=== PATIENT | female | born 2000 | race Hispanic/Latino ===

== ENCOUNTER → 2024-12-25 | Outpatient (CLI) | payer BC ==
--- NOTE | 2024-12-25 15:39 | HMCIMG ---
Exam: Transabdominal pelvic ultrasound History: Irregular menses Technique: static grayscale and color doppler images are submitted. Findings: The uterus is sonographically normal in appearance. Transabdominal measurement: 6.4 x 1.8 x 3.8 cm The endometrial echocomplex is normal in appearance. It measures 4.0 in thickness. The ovaries are sonographically normal in size and appearance Right ovary transabdominal measurement: 3.3 x 1.4 x 2.5 cm. Left ovary transabdominal measurement: 4.4 x 1.6 x 3.8 cm. Dominant left ovarian follicle measuring 1.5 cm maximum dimension. Patent blood flow was detected within both ovaries. No free fluid is seen within the cul-de-sac. No other abnormality is delineated. Impression: No sonographic abnormality on transabdominal imaging. /Hernandez
== END | disposition home or self-care (01) ==
LOC: RAH 12:35
PROVIDERS: ATTEND Family Medicine
DX: N92.6 Irregular menstruation, unspecified (principal)
CPT/HCPCS: 76856